=== PATIENT | female | born 1990 | race Caucasian/White ===

== ENCOUNTER → 2017-08-13 09:24 | Outpatient (CLI) | payer MEDICAID, SELFPAY ==
[2017-08-13 09:41] LABS: Bedside Glucose 78 mg/dL (70-110)
[2017-08-13 10:40] LABS: Glucose GTT-Gestation. Fasting 75 mg/dL (<105)
[2017-08-13 11:32] LABS: Glucose GTT-Gestational 1 Hr 144 mg/dL (<190)
[2017-08-13 13:02] LABS: Glucose GTT-Gestational 3 Hr 88 L (<145)
[2017-08-13 13:09] LABS: Glucose GTT-Gestational 2 Hr 113 mg/dL (<165)
== END ==
PROVIDERS: Visit Provider Obstetrics & Gynecology
DX: O99.810 Abnormal glucose complicating pregnancy (principal); Z3A.00 Weeks of gestation of pregnancy not specified
CPT/HCPCS: 36415; 82951; 82952; 82962

== ENCOUNTER → 2017-10-03 16:57 | Outpatient (CLI) | payer MEDICAID, SELFPAY ==
[2017-10-03 22:09] LABS: Group B Strep DNA By PCR Negative (Negative); Internal Control PASS; Probe Check PASS; Specimen Processing Control PASS
== END ==
PROVIDERS: Visit Provider Obstetrics & Gynecology
DX: Z36.85 Encounter for antenatal screening for Streptococcus B (principal)
CPT/HCPCS: 87081; 87653

== ENCOUNTER 2017-10-24 12:00 | Inpatient (IN) | payer MEDICAID, SELFPAY ==
[2017-10-24] MEDS: Lactated Ringers 1,000 ML 50 ML IV ×2 (12:20→13:14)
[2017-10-24 12:33] VITALS: BMI 27.1
[2017-10-24 12:56] LABS: Hematocrit 39.7 % (37-47); Hemoglobin 13.6 g/dl (12.0-15.0); Mean Corp Hgb Conc 34.3 g/gl (32-36); Mean Corpuscular Hgb 32.2 pg (27.0-32.0); Mean Corpuscular Volume 94.1 fL (81-99); Mean Platelet Vol. 11.5 fl (6.2-12.0); Platelet Count 233 K/mm3 (150-450); RBC Distribution Width CV 12.6 % (11.6-14.6); RBC Distribution Width SD 42.3 fl (35.1-43.9); Red Blood Count 4.22 M/mm3 (4.2-5.4); White Blood Count 15.8 K/mm3 (4.4-11.0)
[2017-10-24 12:58] LABS: Scan Indicated on CBC? Y/N NO
[2017-10-24] MEDS: CLARIFY ORDER NOTE (13:13)
[2017-10-24] MEDS: Oxytocin 30 units/NS 500 ml 30 UNITS/500 ML IV.SOLN IV (13:24)
[2017-10-24] MEDS: fentaNYL-bupivacaine (epidural) 100 ML BAG EPIDURAL (16:07)
[2017-10-24] MEDS: Oxytocin 30 units/NS 500 ml 30 UNITS/500 ML IV.SOLN 334 UNITS IV (17:13)
[2017-10-24] MEDS: Oxytocin 30 units/NS 500 ml 30 UNITS/500 ML IV.SOLN 167 UNITS IV (17:43)
--- NOTE | 2017-10-24 18:43 | OP.PCM_ITS ---
- Problem List (1) Breech extraction Status: Acute Qualifiers: Fetus number: single or unspecified fetus Qualified Code(s): O64.1XX0 - Obstructed labor due to breech presentation, not applicable or unspecified (2) Breech delivery Status: Acute Qualifiers: Fetus number: single or unspecified fetus Qualified Code(s): O32.1XX0 - Maternal care for breech presentation, not applicable or unspecified Vaginal Delivery Maternal Presentation: Elective Induction 39+ weeks admitted for elective induction of labor. Method of Induction: Pitocin Amniotic Membrane Rupture Type: Artificial Rupture of Membrane time: 1330 Amniotic Fluid Description: Clear Final PRATIK: 10/30/17 Final PRATIK Source: US <20 weeks Gestational age: 39 Weeks and 1 Days [place] doctor who attended delivery (if requested by OB): Leann Pop Date of Procedure: 10/24/17 Pre-Operative Diagnosis: breech in second stage of labor Post-Operative Diagnosis: same Surgery/ Procedure Performed: Spontaneous Vaginal Delivery Anesthesiologist: David Duffy Type of Anesthesia: Epidural Description of Procedure: Progressed to FD. Was examined and found to be complete breech. Discussed option for delivery vs trial of breech delivery. Potential complications but given advanced labor and history of pervious 10lb vaginal delivery felt she would be good candidate for vaginal delivery. Was taken to the OR for delivery. With few pushing efforts the breech was brought to the perineum. Using standard maneuvers the baby was delivered without complication. Delayed cord clamping was employed. The cord was clamped and cut and the baby handed off to the waiting [facility] staff for evaluation but the pediatrian. The was a week cry at delivery. Cord blood gases and cord bloods were collected. The placenta was delivered spontaneously intact with a centrally located 3VC. The uterus contracted well after delivery. The cervix, vagina, and perineum were inspected and found to be intact. Presentation: Complete Breech - right sacrum posterior Placental Delivery Description: Spontaneous Placenta Disposition: [facility] Percentage of Placenta Abruption: 0 Cord Vessel Description: 3 Vessels Nuchal Cord Compression: Without compression Cord Entanglement: Around neck x 1, loose Estimated Blood Loss: 300cc A gender: Male (1 minute): 7 (5 minute): 7 Episiotomy Description: None Laceration: None Medications given after delivery: IV Pitocin Complications: None
--- NOTE | 2017-10-24 18:45 | DCINST_ITS ---
Discharge Diet: No Restrictions Discharge Activity: Return to Normal Activity, May Drive, May Shower Return to work on:: 12/24/17 Call your doctor if your incision/area has: Sudden Increased Bleeding, Foul Smelling Discharge Call your doctor if you observe: Fever of 101 or Higher, Inability to urinate, Inability to have a bowel movement, Using more than one pad per hour, Shortness of breath, Chest pain, Calf discomfort, Uncontrolled pain Cleanse incision/area with: Soap & Water Additional Instructions: If you experience any of the following, contact your healthcare provider. * Bleeding that soaks a pad every hour for 2 hours * Fever 100.4 or higher * Unrelieved incision or abdominal pain * Swelling, redness, discharge or bleeding from your incision or episiotomy site * Your incision begins to separate * Problems urinating (including inability to urinate or burning while urinating) . * Visual changes * Severe headache * Flu-like symptoms * Pain or redness in one of both of your breasts * Pain, warmth, tenderness or swelling in your legs, especially the calf area * Frequent nausea and vomiting * Symptoms of depression or anxiety If you experience any of the following, call 911 or go to the nearest Emergency Room. * Chest pain * Problems breathing * Seizure activity * Partial or complete paralysis of a body part, slurred speech, weakness or drooping of the face, or a sudden inability to walk or hold your balance Allergies/Adverse Reactions: Allergies No Known Allergies Allergy (Verified 10/24/17 12:39) Medications to take at Discharge Ibuprofen [Motrin] 800 mg PO TID PRN PRN #30 tab 10/24/17 Vits [Prenatabs FA ] 1 tablet PO DAILY 10/24/17 The following prescriptions were given: Ibuprofen [Motrin] 800 mg PO TID PRN PRN #30 tab PRN Reason: pain or cramping Please Follow Up With: Christopher Verma MD When: 6 weeks Primary Care Physician: Care Physician,No Primary [Primary Care Provider] - Proposed Discharge Date: 10/26/17
[2017-10-24 21:15] VITALS: BP 117/81; PULSE 93; RESP 16; TEMP 36.5; O2SAT 97
[2017-10-24] MEDS: Albuterol 2.5 MG/3 ML VIAL.NEB. INHALATION (23:37)
[2017-10-24 23:38] VITALS: PULSE 91; RESP 16
[2017-10-25] VITALS (10 sets, daily range): BP systolic 107–142; BP diastolic 69–88; PULSE 70–88; RESP 16–18; TEMP 36.2–37.2; O2SAT 95–98
[2017-10-25] MEDS: Albuterol 2.5 MG/3 ML VIAL.NEB. INHALATION ×3 (03:30→11:00)
[2017-10-25 04:28] LABS: Hematocrit 36.4 % (37-47); Mean Corpuscular Hgb 31.4 pg (27.0-32.0); Mean Corpuscular Volume 95.3 fL (81-99); Mean Platelet Vol. 11.2 fl (6.2-12.0); Platelet Count 199 K/mm3 (150-450); RBC Distribution Width CV 12.6 % (11.6-14.6); RBC Distribution Width SD 42.4 fl (35.1-43.9); Red Blood Count 3.82 M/mm3 (4.2-5.4); White Blood Count 15.2 K/mm3 (4.4-11.0)
[2017-10-25 04:30] LABS: Scan Indicated on CBC? Y/N NO
--- NOTE | 2017-10-25 08:55 | PCM.PN.OB ---
Patient Problems: Active and Suspected Problems Breech extraction (Acute) Breech delivery (Acute) Subjective: No specific complaints. Bleeding light. Objective: Afeb VSS. Hgb appropriate PP day#1. - Physical Exam General: Alert, Oriented x3, Cooperative, No apparent distress Lungs: Clear to auscultation, Normal air movement Cardiovascular: Regular rate, Regular Rhythm Abdomen: Soft, Non Tender, Non-Distended, - - Fundus firm nontender Extremities: No edema, No Calf Tenderness Skin: No rashes Neurological: Neuro grossly intact Psych/Mental Status: Normal Affect Comment: lochia light Vital Signs Temp Pulse Resp BP Pulse Ox 97.6 F L 79 18 118/83 H 95 10/25/17 07:34 10/25/17 07:34 10/25/17 07:34 10/25/17 07:34 10/25/17 07:34 Oxygen Delivery Method Room Air Weight: 163 lb 2.273 oz Body Mass Index (BMI) 27.1 Intake and Output for Last 24 Hours 10/23/17 10/24/17 10/25/17 23:59 23:59 23:59 Intake Total 1610 / 1610 Output Total 400 / 400 150 / 150 Balance 1210 / 1210 -150 / -150 Laboratory Tests Past 24 Hrs 10/24/17 10/24/17 10/25/17 12:22 12:22 04:20 WBC 15.8 H 15.2 H RBC 4.22 3.82 L Hgb 13.6 12.0 Hct 39.7 36.4 L MCV 94.1 95.3 MCH 32.2 H 31.4 MCHC 34.3 33.0 RDW 12.6 12.6 RDW Differential 42.3 42.4 Plt Count 233 199 MPV 11.5 11.2 Blood Type O POSITIVE Antibody Screen NEGATIVE Medical Necessity - Tobacco Use Smoking Status: Former smoker Assessment/Plan Active and Suspected Problems Breech extraction (Acute) Breech delivery (Acute) Doing well on PP day#1. Continue routine PP care.
[2017-10-25] MEDS: Senna/Docusate Sodium 1 Tablet PO (11:14)
[2017-10-25 18:30] LABS: Absolute Lymphocyte Count 3.19 X10^3/ul (0.83-4.51); Absolute Neutrophil Count 6.5 X10^3/uL (2.0-7.7); Basophil# 0.04 X10^3/uL; Basophil% 0.4 % (0-1); Eosinophil# 0.17 X10^3/uL; Eosinophils% 1.6 % (0-5); Hematocrit 36.1 % (37-47); Lymphocyte # 3.19 X10^3/ul (4.0); Lymphocyte % 29.5 % (19-41); Mean Corp Hgb Conc 33.2 g/gl (32-36); Mean Corpuscular Hgb 31.7 pg (27.0-32.0); Mean Corpuscular Volume 95.3 fL (81-99); Mean Platelet Vol. 11.1 fl (6.2-12.0); Monocyte# 0.81 X10^3/uL; Monocyte% 7.5 % (0-10); Neutrophil # 6.52 X10^3/uL (2.7-7.7); Neutrophil % 60.2 % (47-70); Platelet Count 213 K/mm3 (150-450); RBC Distribution Width SD 44.4 fl (35.1-43.9); Red Blood Count 3.79 M/mm3 (4.2-5.4); White Blood Count 10.8 K/mm3 (4.4-11.0)
[2017-10-25 18:37] LABS: POSITIVE COUNT NO; POSITIVE DIFFERENTIAL NO; POSITIVE MORPHOLOGY NO
[2017-10-25 18:45] LABS: ALB/GLOB Ratio 0.5 RATIO (0.9-2.4); AST(SGOT) 25 U/L (15-37); Alanine Aminotransfer ALT/SGPT 15 U/L (13-56); Albumin, Serum 2.2 g/dL (3.2-5.0); Alkaline Phosphatase 115 U/L (45-117); Anion Gap 9 (5-15); BUN 11 mg/dL (7-18); Calcium,Total 8.8 mg/dL (8.5-10.1); Chloride 105 mmol/L (98-107); Creatinine, Serum 0.73 mg/dL (0.55-1.02); EST Glomerular Filtration Rate 101 mL/min (>60); Est Glom Filt Rate - Afr Amer 122 mL/min (>60); Estimated Creatinine Clearance 104.16 ml/min; Globulin 4.2 g/dL (2.2-4.2); Glucose 101 mg/dL (74-106); Potassium 3.7 mmol/L (3.5-5.1); Protein, Total 6.4 g/dL (6.4-8.2); Sodium Level 138 mmol/L (136-145)
[2017-10-26 02:20] VITALS: BP 122/78; PULSE 78; RESP 16; TEMP 36.6
[2017-10-26 03:50] VITALS: PULSE 72; RESP 14
[2017-10-26] MEDS: Albuterol 2.5 MG/3 ML VIAL.NEB. INHALATION (03:50)
[2017-10-26 06:45] VITALS: BP 133/83; PULSE 72; RESP 16
--- NOTE | 2017-10-26 08:15 | PN.OBGYN_ITS ---
Patient Problems: Active and Suspected Problems Breech extraction (Acute) Breech delivery (Acute) Subjective: No complaints. Bleeding light. Objective: Afeb VSS - Physical Exam General: Alert, Oriented x3, Cooperative, No apparent distress Lungs: Clear to auscultation, Normal air movement Cardiovascular: Regular rate, Regular Rhythm Abdomen: Soft, Non Tender, Non-Distended, - - Fundus firm nontender Extremities: No edema Skin: No rashes Neurological: Neuro grossly intact Psych/Mental Status: Normal Affect Comment: Lochia light Vital Signs Temp Pulse Resp BP Pulse Ox 98 F 72 16 133/83 H 97 10/26/17 02:20 10/26/17 06:45 10/26/17 06:45 10/26/17 06:45 10/25/17 16:45 Oxygen Delivery Method Room Air Weight: 163 lb 2.273 oz Body Mass Index (BMI) 27.1 Intake and Output for Last 24 Hours 10/24/17 10/25/17 10/26/17 23:59 23:59 23:59 Intake Total 1610 / 1610 Output Total 400 / 400 150 / 150 Balance 1210 / 1210 -150 / -150 Laboratory Tests Past 24 Hrs 10/25/17 10/25/17 18:00 18:00 WBC 10.8 RBC 3.79 L Hgb 12.0 Hct 36.1 L MCV 95.3 MCH 31.7 MCHC 33.2 RDW 13.0 RDW Differential 44.4 H Plt Count 213 MPV 11.1 Immature Gran % (Auto) 0.800 Neut % (Auto) 60.2 Lymph % (Auto) 29.5 [place] % (Auto) 7.5 Eos % (Auto) 1.6 Baso % (Auto) 0.4 Absolute Neuts (auto) 6.5 Absolute Lymphs (auto) 3.19 Total Counted Not Reportable Sodium 138 Potassium 3.7 Chloride 105 Carbon Dioxide 24.0 Anion Gap 9 BUN 11 Creatinine 0.73 Estim Creat Clear Calc 104.16 Est GFR (MDRD) Af Amer 122 Est GFR (MDRD) Non-Af 101 BUN/Creatinine Ratio 15.0 Glucose 101 Uric Acid 5.0 Calcium 8.8 Total Bilirubin 0.10 L AST 25 ALT 15 Alkaline Phosphatase 115 Total Protein 6.4 Albumin 2.2 L Globulin 4.2 Albumin/Globulin Ratio 0.5 L Medical Necessity - Tobacco Use Smoking Status: Former smoker Assessment/Plan Active and Suspected Problems Breech extraction (Acute) Breech delivery (Acute) Doing well on PP day#2. Cleared for discharge today. baby may be kept in special care depending on feeding. If so will keep Yajaira in hotel status. Home going instructions and warnings given.
--- NOTE | 2017-10-26 08:15 | PCM.DC.SUM ---
Discharge Date and Diagnosis - Problem List Patient Problems: Active and Suspected Problems Breech extraction (Acute) Breech delivery (Acute) Date of Admission: 10/24/17 Date of Discharge: 10/26/17 - Primary Discharge Diagnosis Active and Suspected Problems Breech extraction (Acute) Breech delivery (Acute) Hospital Course and Treatment Operations: None Procedures: - - Epidural. Pitocin induction. Breech vaginal delivery. Summary of Care Provided: The patient is a 26 year old F [admitted for induction of labor at term. Progressed to fully dilated then found to be breech. Delivered without complication. Post course unremarkable. Discharged on PP day#2.] Discharge Diet: No Restrictions Discharge Activity: Return to Normal Activity, May Drive, May Shower Return to work on:: 12/24/17 Call your doctor if your incision/area has: Sudden Increased Bleeding, Foul Smelling Discharge Call your doctor if you observe: Fever of 101 or Higher, Inability to urinate, Inability to have a bowel movement, Using more than one pad per hour, Shortness of breath, Chest pain, Calf discomfort, Uncontrolled pain Cleanse incision/area with: Soap & Water Home Medications: Medications to take at Discharge Ibuprofen [Motrin] 800 mg PO TID PRN PRN #30 tab 10/24/17 Vits [Prenatabs FA ] 1 tablet PO DAILY 10/24/17 Following Prescrptions Were Given to Patient: Ibuprofen [Motrin] 800 mg PO TID PRN PRN #30 tab PRN Reason: pain or cramping Primary Care Physician: Care Physician,No Primary [Primary Care Provider] - Please Follow Up With: Christopher Verma MD When: 6 weeks Disposition: Home Minutes spent on discharge:: 15 Patient Condition:: Good Medical Necessity - Tobacco Use Smoking Status: Former smoker Meaningful Use Info Meaningful Use Diagnoses (Choose all that apply): None applicable
[2017-10-26 08:19] VITALS: BP 141/78; PULSE 90; RESP 18; TEMP 36.9
[2017-10-26 09:00] VITALS: BP 131/84; PULSE 80; RESP 18; TEMP 36.5
[2017-10-26 14:25] VITALS: BP 141/78; PULSE 90; RESP 18; TEMP 36.9
--- NOTE | 2017-10-26 14:32 | NURSING ---
SC[facility] will provide baby care teaching
--- NOTE | 2017-11-01 14:09 | CASEMGMT ---
Addendum entered and electronically signed by Linda Belcher 11/01/17 14:20: Note, this assessment is a late entry for the assessment which occurred face to face with patient on 10-26-17. SAMIRA nelson, PROFESSOR OF VEGETABLE SCIENCE Original Note: Social Work Note Labor and Delivery Unit Social Work Assessment completed. Refer to documentation below for further details. Reason for Referral: Maternal history of depression, resources, support Date of Intervention: 10-26-17 Time of Intervention: 1400 History obtained from: Medical record, patient/mother of baby (MOB), and reported father of baby (FOB). Educated MOB that this database report writer provides social work to the [facility], so information from this assessment will be used in MOB's record at [facility] and then in baby's [facility] record Household composition: MOB, the reported FOB, and MOBs oldest child Adelso Vega. MOB plans to take infant, Benije Marie Jr., to this home as well. MOB reports home situation is safe and adequate. Patient's parent/guardian status: MOB and FOB reports have been together for a year. Pryor is the first child for both MOB and FOB together, and the first for FOB. MOB denies any form of abuse in relationship with FOB. MOB reports oldest son, Adelso is 8 years old. Flores father is not involved. Medical History: MOB is G2, P1 to 2 after delivering Elder Vargas care good, starting at 9 weeks gestation. Record indicates MOB with history of fibromyalgia and asthma. Baby was born weighing 2519 grams, Apgars 7 and 8. Baby transferred to [facility] for hypoglycemia issues. Delivered vaginally, breech, reportedly SGA in weight. 39 weeks gestation at delivery. Educational Status: MOB reports to have graduated high school, denies any issues with reading, writing, or learning comprehension. 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 Infant Supplies: MOB reports to have needed supplies including a car seat, crib, bassinet, clothing, diapers, wipes. Childcare/Caregiver(s): MOB will be primary caregiver. Transportation: No reported issues. Programs/Agencies Involved: MOB reports to have food and medical through S. MOB is on WIC. MOB and FOB report agreement with a [facility] referral. Children Services/Legal Issues: MOB denies any history of involvement, past or present. Behavioral Health Issues: MBO reports history of depression and treatment of Zoloft after Adelso was born. No suicidal ideations reported during that time frame, but MOB admits that last year had thoughts of running car off the road. MOB reports was upset after the of MOBs grandmother, and actually felt the pull to drive off the road, but then MOB thought of Adelso. MOB reports children are a strong reason to live and keep moving forward. MOB denies any thoughts, plans, intent for suicide outside of this one time, denies any thoughts during , or currently. MOB denies any drug or alcohol use during . MOB reports as a teenager did use cocaine, and one time tired Adderall, but got into trouble and turned life around ceasing use of substances. MOB denies history of other illicit drug use. Family/Social Stressors: MOB and FOB have been together a year. During private conversation, MOB admits to feelings some stress about FOB, making reference that FOB is going to have to get used to being a father. MOB denies any form of abuse in this relationship. During conversation with MOB and FOB together, FOB stated oh, that wont be a problem. She knows how I deal with stress, when social media editor was talking about shaken baby syndrome and what to do if feeling stressed. Through conversation FOB reports that smokes marijuana to deal with stress. Support Systems: MOB reports FOB and both sides of family are supportive. Depression/Shaken Baby/Safe Sleeping: Educated MOB and FOB to depression, signs and symptoms to look for, and online supports available. Educated to shaken baby syndrome, what to do to prevent shaking baby. Educated to safe sleeping. ASSESSMENT: Initially met with MOB and FOB together. Both engaged in conversation, FOB standing beside MOB, while MOB and this database report writer were sitting. Both MOB and FOB provided input, though FOB seemed to have a strong personality and would take charge of answering. MOB just looked at this database report writer, smiling, or put head down during this time when FOB would talk. This database report writer did ask FOB to leave for some private conversation, which FOB did willingly. During private conversation, MOB appeared to relax and was more talkative. MOB appeared to talk openly about having history of depression, as evidenced by crying and sharing how hard it was for MOB when MOBs grandmother . MOB denied several times feeling intimidated, threatened, or controlled by FOB. composite layup worker broached with MOB that it had appeared MOB had some tension when FOB was present. MOB admitted to some stress in that has been thinking that FOB is going to have to get used to being a father, though did not talk further about what this means. MOB reports receptivity to having social media editor make a [facility] referral, so that both MOB and FOB can gain some extra support/education. MOB also receptive to having social media editor make a counseling referral, for added support and coping. MOB reports that does have family to help when returns home, to feel a connection with infant, and that does desire to keep and parent . Note, this database report writer spoke with FOB of the importance of not using drugs/marijuana around the children and to not take care of the kids after using. Encouraged cessation. FOB reports to understand that cannot be using marijuana around the kids. Intervention: MOB signed release of information to [facility]. Intake set for 11-16-17 at 1430 with Maximiliano Massey. MOB verbally agrees to time and date for intake, denies need to have something sooner. MOB agrees to [facility] referral. MOB accepted information on depression, incljding online supports. MOB accepted [facility] resources packet of social service agencies. PLAN: Baby will discharge home with MOB when able to discharge from [facility]. MOB will discharge from hospital today. [facility] referral being made. Resource list for [facility] given. MOB agrees to mental Health follow up. -TRIPP Palacios, PROFESSOR OF VEGETABLE SCIENCE
--- NOTE | 2017-11-01 14:48 | CASEMGMT ---
Social Work Note - Labor and Delivery Unit [facility] referral submitted via the [facility]'s secure online referral system. Referral for support, resources, education. Risk for depression in both mom and dad. First time father. Both patient/mother of baby and father of baby verbally agreed to referral during initial social work assessment. -SAMIRA Palacios, POULTRY FARM WORKER
== END 2017-10-26 15:00 | disposition home or self-care (01) | DRG 373 ==
PROVIDERS: Obstetrics & Gynecology; Admitting Provider Obstetrics & Gynecology; Visit Provider Obstetrics & Gynecology
DX: O64.1XX0 Obstructed labor due to breech presentation, not applicable or unspecified (principal); O69.81X0 Labor and delivery complicated by cord around neck, without compression, not applicable or unspecified; Z87.891 Personal history of nicotine dependence; Z3A.39 39 weeks gestation of pregnancy; Z37.0 Single live birth
CPT/HCPCS: 59025; 59050; 76815; 80053; 84550; 85025; 85027; 86850; 86900; 94640; 99218; J7120; G0378

== ENCOUNTER 2018-01-16 09:07 | Day surgery (SDC) | payer MEDICAID, SELFPAY ==
[2018-01-16] VITALS (7 sets, daily range): BP systolic 92–118; BP diastolic 51–78; PULSE 57–78; RESP 16–18; TEMP 36.4–36.8; O2SAT 97–100; BMI 22.4
--- NOTE | 2018-01-16 | FALS_PTH ---
PATIENT: RIA HINOJOSA LOC: [facility] U#:[id number] AGE/SX: 27/F ROOM: RE01/16/[address]: Dr. Christopher Verma MD : 1990 BED: DIS: 01/16/2018 SPEC #: [id number] RECD: 01/16/18 14:10 STATUS: MAKSIM SAVANA #: [id number] MARIANNA: 01/16/18 00:[address]: Christopher Verma DEPT: SURGICAL PATHOLOGY RECD BY: Mayur Steven ENTERED: 01/16/18 14:11 SP TYPE: FALL TUBES OTHR DR: No Primary Care Phys Tissues: Fallopian tube Procedures: Surgery Specimen Level II HEADER OPERATION: Laparoscopic salpingectomy, bilateral PRE-OP DIAGNOSIS: Request sterilization TISSUE SUBMITTED: Bilateral fallopian tubes MICROSCOPIC DIAGNOSIS Bilateral fallopian tube, salpingectomy: Bilateral fallopian tube with mild acute and chronic inflammation. SJ:shankar 01/17/18 COMMENT Case has been reviewed in consultation with Dr. Sterling who concurs with the above diagnosis. IDC:AM MICROSCOPIC DESCRIPTION Slides are reviewed. GROSS DESCRIPTION Received in fixative is one container labeled with the patient's name and designated bilateral fallopian tube. The specimen consists of bilateral fallopian tubes including fimbrial ends. The fallopian tubes are not identified right or left. One of the fallopian tubes measures 6 cm in length and 0.5 cm in diameter. The second fallopian tube measures 6 cm in length and 0.6 cm in diameter. Sections do not reveal any mass lesion. Opthalmic Tech sections are submitted in 2 cassettes, with each cassette containing 1 fallopian tube. JOHN:shankar 01/16/18 TC:3 CPT:41520 x2
[2018-01-16 09:40] LABS: Internal QC Validated? YES +Cl - CLEAR BKGD; Pregnancy, Urine Negative Negative
[2018-01-16 09:52] LABS: Hematocrit 40.4 % (37-47); Hemoglobin 13.4 g/dl (12.0-15.0); Mean Corp Hgb Conc 33.2 g/gl (32-36); Mean Corpuscular Hgb 31.1 pg (27.0-32.0); Mean Corpuscular Volume 93.7 fL (81-99); Mean Platelet Vol. 10.2 fl (6.2-12.0); Platelet Count 192 K/mm3 (150-450); RBC Distribution Width CV 13.1 % (11.6-14.6); RBC Distribution Width SD 45.1 fl (35.1-43.9); Red Blood Count 4.31 M/mm3 (4.2-5.4)
[2018-01-16 09:53] LABS: Scan Indicated on CBC? Y/N NO
[2018-01-16 09:58] LABS: Prothrombin Time (Protime)PT. 13.1 SECONDS (11.7-14.9)
[2018-01-16 09:59] LABS: Partial Thromboplast Time 30.3 Seconds (24.1-36.2)
[2018-01-16] MEDS: Bupivacaine 0.25% 30 ML Vial (11:44)
--- NOTE | 2018-01-16 12:00 | PCM.DC ---
You will use the following diet at home:: No restrictions Your food should be the consistency of: Regular Discharge Activity: Return to Normal Activity, May Not Drive, May not drive while taking narcotic pain medications., May Shower Return to work on:: 01/25/18 May shower in (days): 0 May resume sexual activity in: 1-2 weeks Call your doctor if your incision/area has: Sudden Increased Bleeding, Increased Pain/ Swelling, Increased Redness, Foul Smelling Discharge, Swelling at the incision site Call your doctor if you observe: Fever of 101 or Higher, Inability to urinate, Inability to have a bowel movement, Using more than one pad per hour, Shortness of breath, Chest pain, Calf discomfort, Uncontrolled pain Remove Dressing in (days):: 2 Cleanse incision/area with: Soap & Water Allergies/Adverse Reactions: Allergies No Known Allergies Allergy (Verified 01/09/18 11:29) Medications to take at Discharge Albuterol Inhaler [Ventolin Hfa (SP)] 1 - 2 puff INHALATION Q6H PRN PRN 01/09/18 Ibuprofen [Ibu] 600 mg PO Q6H PRN PRN #30 tab 01/16/18 Oxycodone [Oxyir] 5 mg PO Q4H PRN PRN 7 Days #20 tab 01/16/18 The following prescriptions were given: Oxycodone [Oxyir] 5 mg PO Q4H PRN PRN 7 Days #20 tab PRN Reason: Pain Ibuprofen [Ibu] 600 mg PO Q6H PRN PRN #30 tab PRN Reason: pain or cramping Primary Care Physician: Care Physician,No Primary [Primary Care Provider] - Please Follow Up With: Christopher Verma MD When: one week Proposed Discharge Date: 01/16/18
--- NOTE | 2018-01-16 12:13 | OP.PCM_ITS ---
Problem List (1) Request for sterilization Status: Chronic Report of Operation Date of Procedure: 01/16/18 Pre-Operative Diagnosis: Requests permanent sterilization Post-Operative Diagnosis: same Surgery/Procedure Performed:: Laparoscopic Bilateral Salpingectomy Description of Surgical Findings:: Normal appearing cervix, uterus, and fallopian tubes. Ovaries appeared normal. chairman president and chief executive officer: Aline Fuentes Type of Anesthesia:: General Anesthesiologist: Romel Fonseca Special Medications: none Specimen's removed: right and left fallopian tubes Drains: none Estimated Blood Loss (mL): minimal Fluids Replaced: 1000cc LR Description of Procedure: Yajaira reiterated her desire for permanent sterilization prior to the procedure. She was taken to the OR with IV running. She was given two grams of Cefotetan intravenously for surgical prophylaxis. General anesthesia was introduced without complication. She was then prepped and draped in the dorsal lithotomy position. A adkins catheter was used to drain the bladder. Attention was first directed to the vagina. A uterine manipulator was placed. Attention was then directed to the abdomen. A 5mm vertical skin incision was made in the lower base of the umbilicus. The underlying subcutaneous tissue was dissected down to the level of the fascia using a Kacy clamp. The abdominal wall was then elevated and a Veress needle was placed through the umbilical defect into the abdominal cavity. The abdomen was then inflated to 15 Torr with CO2 gas. The Veress needle was removed and replaced with a 5mm laparoscopic trocar and sleeve. The trocar was removed and replaced with the laparoscope. A lateral 5 mm port was placed on the left at approximately the level of the umbilicus lateral to the inferior epigastric vessels. A laparoscopic minialligator forceps was placed in the midline between the umbilicus and the pubic symphysis. A thorough survey of the abdomen and pelvis was then performed. Findings as mentioned above. The left fallopian tube was then grasped at the fimbriated end and the mesosalpinx serially dissected from the fimbriated end of the tube to the cornua of the uterus. The tube was then amputated at the cornua and removed through the side port. In a similar fashion the right fallopian tube was removed. Hemostasis at the pedicle sites was assured. The lateral laparoscopic port was then removed. The gas was evacuated and the umbilical port was removed. The skin incisions were closed with 4-0 MOnocryl suture. The uterine manipulator was removed. Sponge, needle and instrument counts were correct. Yajaira was reversed from anesthesia and taken to the recovery room in stable condition. Grafts/Implants Used: none - Complications none - Admit VTE Documentation VTE Present on Admission: No VTE Mechan Device Prophylaxis: SCD's VTE Pharm Prophylaxis ordered?: No
[2018-01-16] MEDS: oxyCODONE 5 MG Tablet PO (14:12)
== END 2018-01-16 15:05 | disposition home or self-care (01) ==
LOC: SDC 09:07 → AC 09:08
PROVIDERS: Visit Provider Obstetrics & Gynecology
PROC: (CPT 58661; principal; 2018-01-16 10:15)
DX: Z30.2 Encounter for sterilization (principal); N70.01 Acute salpingitis; N70.11 Chronic salpingitis; J45.909 Unspecified asthma, uncomplicated; M79.7 Fibromyalgia; Z87.891 Personal history of nicotine dependence; Z87.440 Personal history of urinary (tract) infections
CPT/HCPCS: 58661; 36415; 81025; 85027; 85610; 85730; 86850; 86900; 88302; J7120